=== PATIENT | female | born 1990 | race Caucasian/White ===

== ENCOUNTER 2019-10-24 13:02 | Emergency (ER) | payer OTHER, MEDICAID, SELFPAY ==
[2019-10-24 13:20] VITALS: BP 122/68; PULSE 128; RESP 20; TEMP 37.9; O2SAT 99
--- NOTE | 2019-10-24 14:00 | ED.ABDPAIN ---
HPI - Abdominal Pain General Chief Complaint: Abdominal Pain Stated Complaint: VOMITING/FEVER/BODY ACHES/COLD Source: patient Mode of arrival: ambulatory Limitations: no limitations History of Present Illness HPI narrative: 29-year-old female presents to urgent with complaints of lower abdominal pains, body aches, chills, fevers, nausea and vomiting since last night. Patient took ibuprofen this morning for her symptoms. Patient denies recent travel. Patient denies sick contacts. Patient also reports minimal sneezing, nasal congestion and dry cough MD elicited complaint: abdominal pain Pertinent past history: none Onset (ago): day(s) (1) Location: [facility] Severity: mild Radiation: none Exacerbating factors: nothing Associated symptoms: nausea, vomiting and fever Treatments prior to arrival: NSAIDs Related Data Date of Last Menstrual Period: 10/17/19 Patient : No Home Medications Medication Instructions Recorded Confirmed levothyroxine 100 mcg PO DAILY 10/24/19 10/24/19 norgestimate-ethinyl estradiol 1 tablet PO DAILY 10/24/19 10/24/19 [Tri-Sprintec (28)] omeprazole 20 mg PO DAILY 10/24/19 10/24/19 Allergies Allergy/AdvReac Type Severity Reaction Status Date / Time No Known Allergies Allergy Verified 10/24/19 15:58 Review of Systems Review of Systems: All systems reviewed & are unremarkable except as noted in HPI and below Constitutional: Constitutional: Reports chills, Denies fatigue, Reports fever(s) and Denies weakness ENT: Denies dysphagia, Denies dizziness, Denies epistaxis, Reports nasal congestion and Denies sore throat Cardiovascular: Cardiovascular: Denies chest pain and Denies radiating jaw, neck or arm pain Respiratory: Respiratory: Denies cough and Denies dyspnea Gastrointestinal: Gastrointestinal: Reports abdominal pain, Denies bloating, Denies constipation, Denies diarrhea, Reports nausea and Reports vomiting Genitourinary: Genitourinary: Denies nocturia, Denies dysuria, Denies flank pain and Denies urinary incontinence Neurologic: Denies vertigo, Denies dizziness, Denies syncope, Denies headache(s) and Denies weakness [facility] Social History Social History Gender identity (if verbalized by the patient): Female Exam Const: General: no acute distress, alert and ill appearing Orientation/consciousness: patient oriented x3 HENMT: Head: normal to inspection Ears: external ears normal and TM's normal bilaterally General nose exam: Normal nares present Face and sinus: sinuses nontender Throat: uvula midline Neck: Neck: normal visual inspection Resp: Effort & Inspection: normal respiratory effort Auscultation: clear to auscultation bilaterally Cardio: Rate: tachycardic Rhythm: regular rhythm GI: Inspection: non-distended GI Palp: Yes Soft to palpation and Yes Tenderness to palpation present (GI) (LLQ) Auscultation: normal bowel sounds : General: Yes no CVA tenderness Back/Spine/Pelvis: Back: no CVA tenderness Skin: General skin exam: normal color, no jaundice and no pallor Rashes: no rashes Neuro: General: patient oriented x3 and moves all extremities Psych: Appearance: grossly normal Mental Status: mental status grossly normal Affect: normal affect Attitude: cooperative Thought content: Yes Normal thought content present Course Vital Signs Vital signs: Vital Signs Temperature 37.9 C H 10/24/19 13:20 Pulse Rate 128 H 10/24/19 13:20 Respiratory Rate 20 10/24/19 13:20 Blood Pressure 122/68 10/24/19 13:20 Pulse Oximetry 99 10/24/19 13:20 Temperature 37.9 C H 10/24/19 13:20 Pulse Rate 128 H 10/24/19 13:20 Respiratory Rate 20 10/24/19 13:20 Blood Pressure 122/68 10/24/19 13:20 Pulse Oximetry 99 10/24/19 13:20 MDM - Abdominal Pain MDM Narrative Medical decision making narrative: Due to vital signs, symptoms and examination, patient will be referred to [facility]
[2019-10-24] MEDS: ONDANSETRON HCL ODT 4 MG TABLET PO (14:13)
--- NOTE | 2019-10-24 15:00 | PC.NURSE ---
Tylenol 1000 mg and zofran 4 mg given at 1410.
== END 2019-10-24 14:40 | disposition short-term general hospital (02) ==
PROVIDERS: Emergency Provider Nurse Practitioner Family; PCP Nurse Practitioner Family
DX: R10.32 Left lower quadrant pain (principal); R11.2 Nausea with vomiting, unspecified; R50.9 Fever, unspecified
CPT/HCPCS: 81003; 87804; 99213; A9270; G0463

== ENCOUNTER 2019-10-24 15:12 | Emergency (ER) | payer OTHER, MEDICAID, SELFPAY ==
[2019-10-24 15:35] VITALS: BP 117/67; PULSE 114; RESP 18; TEMP 37.2; O2SAT 98
[2019-10-24 15:49] LABS: Basophils Percent Auto 0.3 % (0.2-1.2); Eosinophils Percent Auto 0.1 % (0-4.4); Hematocrit 41.3 % (37.0-47.0); Hemoglobin 14.1 g/dL (12.0-15.0); Immature Granulocyte Absolute 0.02 K/mm3 (0.00-0.031); Immature Granulocyte Percent A 0.3 % (0-0.5); Lymphocytes Absolute Auto 0.45 K/mm3 (0.9-3.2); Mean Corpuscular HGB Conc 34.1 g/dl (32-36); Mean Corpuscular Hemoglobin 28.8 pg (26-34); Mean Corpuscular Volume 84.5 fl (80-100); Mean Platelet Volume 10.6 fl (7.4-10.4); Monocytes Absolute Auto 0.3 K/mm3 (0.1-0.6); Monocytes Percent Auto 3.9 % (2.6-8.5); Neutrophils Absolute Auto 6.7 K/mm3 (1.3-6.7); Neutrophils Percent Auto 89.4 % (45.5-73.1); Platelet Count Result 166 k/mm3 (150-375); Red Blood Count 4.89 M/mm3 (4.2-5.4); Red Cell Distribution Width 12.2 % (11.5-14.5); White Blood Count 7.5 K/mm3 (4.5-10.0)
[2019-10-24 15:58] LABS: Alanine Aminotransferase 23 U/L (4-35); Albumin Level 4.6 g/dL (3.5-5.1); Alkaline Phosphatase 59 U/L (38-126); Aspartate Amino Transferase 30 U/L (14-36); Bilirubin,Total 0.9 mg/dL (0.2-1.3); Blood Urea Nitrogen 13 mg/dL (7-17); Carbon Dioxide 23 mmol/L (22-30); Chloride 96 mmol/L (98-107); Estimated CRCL calculation 77 ml/min; Estimated Glomerular Filt Rate > 60; Glucose 91 mg/dL (65-105); Lipase 30 U/L (23-300); Potassium 3.7 mmol/L (3.4-5.0); Sodium 135 mmol/L (137-145)
[2019-10-24 15:59] VITALS: BP 125/84; PULSE 95; RESP 12; O2SAT 98
[2019-10-24 16:18] LABS: Add Urine Microscopic? YES; Appearance Urine Clear (Clear); Bacteria Urine Trace /hpf; Bilirubin Urine Negative (Negative); Blood Urine 1+ (Negative); Color Urine Yellow (Yellow); Glucose Urine UA Negative (Negative); Ketones Urine 2+ mg/dL (Negative); Leukocyte Esterase Ur Negative LEU/UL (Negative); Mucus Urine Few /lpf; Nitrate Urine Negative (Negative); Protein Urine 1+ mg/dL (Negative); Squamous Epithelial Cell Urine Many /hpf (Few); WBC Urine 0-3 /hpf
--- NOTE | 2019-10-24 16:24 | ED.NAVMDI ---
HPI - Nausea/Vomiting/Diarrhea General Chief complaint: Nausea/Vomiting/Diarrhea Stated complaint: vomiting, body aches Time Seen by Provider: 10/24/19 16:21 Source: patient and RN notes reviewed Mode of arrival: other Limitations: no limitations History of Present Illness HPI Narrative: Pt is a 29 y/o female who presents to the ED with c/o nausea and vomiting that began last night. Pt states that she was vomiting constantly last night and she states her last episode of emesis was between 3-5 AM. Pt states that she initially had diarrhea on Wednesday (10/20/19), but her diarrhea resolved Wednesday. Pt states that UC said the pt was dehydrated d/t the pt not drinking fluids. Pt is taking an oral contraceptive and her LMP was 10/16. Pt also reports body aches, fever, and intermittent LLQ abdominal pain, but denies hematuria. MD elicited complaint: nausea and vomiting Onset (ago): day(s) (1) Description of vomiting: other (constant) Description of diarrhea: other (resolved) Associated nausea: Yes Associated abdominal pain: Yes Location of pain: LLQ Pain consistency: intermittent Associated symptoms: myalgias and fever/chills Related Data Home Medications Medication Instructions Recorded Confirmed levothyroxine 100 mcg PO DAILY 10/24/19 10/24/19 norgestimate-ethinyl estradiol 1 tablet PO DAILY 10/24/19 10/24/19 [Tri-Sprintec (28)] omeprazole 20 mg PO DAILY 10/24/19 10/24/19 Allergies Allergy/AdvReac Type Severity Reaction Status Date / Time No Known Allergies Allergy Verified 10/24/19 15:58 Review of Systems Review of Systems: All systems reviewed & are unremarkable except as noted in HPI and below Gastrointestinal: Gastrointestinal: Reports abdominal pain (intermittent LLQ), Reports diarrhea ((resolved)), Reports nausea and Reports vomiting Genitourinary: Genitourinary: Denies hematuria Musculoskeletal: Musculoskeletal: Reports myalgias PMFSH Past Medical History Medical History (Updated 10/24/19 @ 18:13 by Jarod Acosta MD) Anxiety Hypothyroid Surgical History Surgical History (Updated 10/24/19 @ 18:04 by Jordyn De La Garza) No history of previous surgery Social History Social History (Updated 10/24/19 @ 18:04 by Jordyn De La Garza) Smoking status: Never smoker Gender identity (if verbalized by the patient): Female Exam Const: General: healthy appearing, no acute distress and well developed Nutritional Appearance: well nourished Orientation/consciousness: patient oriented x3 (alert) and Other orientation findings (Alert) Limitations: no limitations HENMT: Head: normocephalic and atraumatic Ears: external ears normal General nose exam: No nasal discharge present and no epistaxis Face and sinus: face symmetric Mouth: Yes lip normal, Yes tongue normal and Yes moist mucous membranes Throat: other (No exudate, no erythema) Eyes: Conjunctivae: conjunctivae normal Sclera: sclerae normal EOM: EOMs intact bilaterally Neck: Neck: full ROM, no lymphadenopathy and supple Thyroid: thyroid normal Chest: Chest palpation & inspection: no tenderness Resp: Effort & Inspection: normal respiratory effort Auscultation: clear to auscultation bilaterally, no rales, no rhonchi, no wheezes and other (breath sounds equal) Cardio: Rate: regular rate Rhythm: regular rhythm Heart sounds: no gallops and no murmurs GI: Inspection: non-distended GI Palp: No abdominal tenderness and Yes Soft to palpation Auscultation: other (bowel sounds present) : General: Yes no CVA tenderness Back/Spine/Pelvis: Back: no CVA tenderness Thoracic/Lumbar Spine: thoracic and lumbar spine normal to inspection Skin: General skin exam: normal color and no rashes or lesions noted Neuro: General: patient oriented x3 (alert), moves all extremities and no focal motor deficits Cranial nerves: Yes facial symmetry Speech: normal speech Motor exam (neuro): Motor abnormalities not present Extrem: General: normal to inspection, full ROM
[2019-10-24 16:28] LABS: Specific Grav Ur 1.032 (1.001-1.035)
[2019-10-24 16:52] VITALS: BP 111/93; BP 114/73; BP 116/75; PULSE 87; PULSE 94; PULSE 96
[2019-10-24 18:00] VITALS: BP 110/88; PULSE 77; RESP 14; O2SAT 97
[2019-10-24] MEDS: ACETAMINOPHEN 500 MG TABLET 1000 MG PO (18:25)
[2019-10-24 18:30] VITALS: BP 100/66; PULSE 88; RESP 19; O2SAT 97
== END 2019-10-24 18:30 | disposition home or self-care (01) ==
PROVIDERS: Emergency Medicine; Emergency Provider Emergency Medicine; PCP Nurse Practitioner Family
DX: K52.9 Noninfective gastroenteritis and colitis, unspecified (principal)
CPT/HCPCS: 36415; 80053; 81001; 81025; 83690; 85025; 99283; A9270